=== PATIENT | female | born 1995 | race Caucasian/White ===

== ENCOUNTER → 2017-10-11 | Outpatient (CLI) | payer OTHER, BC ==
[~2017-10-11] MED LIST: MEDR150I IM; MINO100 PO; SPIR50 PO
[2017-10-11 12:54] LABS: Specimen Source CERVIX
[2017-10-12 09:39] LABS: Source Cervix
== END ==
LOC: OLS 12:52 → LAB SHORT 12:52
PROVIDERS: Obstetrics & Gynecology Gynecology
DX: Z11.3 Encounter for screening for infections with a predominantly sexual mode of transmission (principal); Z12.4 Encounter for screening for malignant neoplasm of cervix
CPT/HCPCS: 87491; 87591

== ENCOUNTER → 2018-08-18 | Outpatient (CLI) | payer OTHER | LOC: LAB SHORT 11:49 → LAB 11:49 | DX: Z33.1 Pregnant state, incidental (principal) | CPT/HCPCS: 84702 ==

== ENCOUNTER 2022-01-27 05:04 | Inpatient (IN) | payer BC ==
[~2022-01-27] VITALS: Ht 160 cm; Wt 80.0 kg
[2022-01-27] MEDS ORDERED: METF500 PO (05:21)
[2022-01-27 05:47] LABS: BASOPHILS ABSOLUTE AUTO 0.06 K/mm3 (0.00-0.23); BASOPHILS PERCENT AUTO 1 % (0-2); EOSINOPHILS ABSOLUTE AUTO 0.08 K/mm3 (0.00-0.68); EOSINOPHILS PERCENT AUTO 1 % (0-6); Hematocrit 37.7 % (33.0-51.0); Hemoglobin 12.6 g/dL (11.5-16.0); IMMATURE GRAN ABSOLUTE AUTO 0.09 K/mm3 (0.00-0.10); IMMATURE GRAN PERCENT AUTO 1 % (0-1); LYMPHOCYTES ABSOLUTE AUTO 2.63 K/mm3 (0.84-5.20); LYMPHOCYTES PERCENT AUTO 26 % (21-46); MONOCYTES ABSOLUTE AUTO 0.82 K/mm3 (0.16-1.47); MONOCYTES PERCENT AUTO 8 % (4-13); Mean Corpuscular HGB 28.6 pg (26.0-34.0); Mean Corpuscular HGB Conc 33.4 g/dL (31.5-36.5); Mean Corpuscular Volume 86 fL (80-100); NEUTROPHILS ABSOLUTE AUTO 6.54 K/mm3 (1.96-9.15); NEUTROPHILS PERCENT AUTO 64 % (41-73); Platelet Count 199 K/mm3 (150-400); RDW Coefficient Variation 13.6 % (11.7-14.2); RDW Standard Deviation 42.4 fL (35.1-46.3); White Blood Cell Count 10.22 K/mm3 (4.00-11.30)
--- NOTE | 2022-01-27 07:10 | NUR ---
ASSUMED PT CARE. PT HERE FOR CYTO TO PIT INDUCTION FOR IUGR. HERE WITH [facility], HE IS VERY SUPPORTIVE. THIS IS A SUPRISE GENDER, PLANNING UNMEDICATED , BUT OPEN TO ALL OPTIONS IF NEEDED. 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 ALL CARE TEACHING DONE. ALL QUESTIONS ANSWERED. SEE GE CHARTING FOR ALL FURTHER CHARTING.
--- NOTE | 2022-01-27 19:00 | NUR ---
REPORT TO DIANA JOSUE.
[2022-01-28 05:37] LABS: Hematocrit 33.9 % (33.0-51.0); Hemoglobin 11.4 g/dL (11.5-16.0); Mean Corpuscular HGB 28.6 pg (26.0-34.0); Mean Corpuscular HGB Conc 33.6 g/dL (31.5-36.5); Mean Corpuscular Volume 85 fL (80-100); Mean Platelet Volume 12.4 fL (9.1-12.4); Platelet Count 180 K/mm3 (150-400); RDW Coefficient Variation 13.5 % (11.7-14.2); RDW Standard Deviation 41.8 fL (35.1-46.3); Red Blood Cell Count 3.99 M/mm3 (3.80-5.20)
--- NOTE | 2022-01-28 12:51 | NUR ---
PT UP AMBULATING IN ROOM. KATHIE SELF AND NB CARE WELL. NO COMPLAINTS. DENIES PAIN. NO QUESTIONS OR CONCERNS.
[2022-01-28] MEDS ORDERED: IBUP800 PO (14:05)
[2022-01-28] MEDS ORDERED: PRENATAL TABLE1 EAC2 PO (14:05)
--- NOTE | 2022-01-28 18:53 | NUR ---
D/C HOME WITH NB
== END 2022-01-28 18:50 | disposition home or self-care (01) | DRG 807 ==
LOC: OBS 05:04 → BC 05:06 → OBS 05:12 → BC 05:13
PROVIDERS: ADMIT Nurse Practitioner Obstetrics & Gynecology
PROC: 10E0XZZ Delivery of Products of Conception, External Approach (ICD-10-PCS; principal; 2022-01-27)
PROC: 10907ZC Drainage of Amniotic Fluid, Therapeutic from Products of Conception, Via Natural or Artificial Opening (ICD-10-PCS; 2022-01-27)
DX: O36.5930 Maternal care for other known or suspected poor fetal growth, third trimester, not applicable or unspecified (principal); Z37.0 Single live birth; O69.1XX0 Labor and delivery complicated by cord around neck, with compression, not applicable or unspecified; Z3A.39 39 weeks gestation of pregnancy; Z98.890 Other specified postprocedural states
CPT/HCPCS: 36415; 85025; 85027; 86850; 86900; 86901; A9270; J1885; J2001; J2590; J3010; J7120